=== PATIENT | male | born 1960 | race Caucasian/White ===

== ENCOUNTER → 2022-01-19 | Outpatient (CLI) | payer MEDICARE, MEDICAID ==
[~2022-01-19] MED LIST: AMLO5TAB88 PO; ASPI-1497 PO; GABA-532 PO; HYDR-4135 PO; LOSA50TA41 PO; METH-818 PO; METH10OR PO; METO25TA6 PO; OMEP40CA20 PO; ROSU20TA2 PO; TICA90TA PO; VITA250012 MT
== END | disposition home or self-care (01) ==
LOC: LAB 09:31
PROVIDERS: ATTEND Surgery Vascular Surgery
DX: Z20.822 Contact with and (suspected) exposure to COVID-19 (principal)
CPT/HCPCS: 87426

== ENCOUNTER 2022-01-20 07:38 | Inpatient (IN) | payer MEDICARE, MEDICAID ==
[~2022-01-20] VITALS: Ht 177.8 cm; Wt 135.8 kg
[2022-01-20] VITALS (34 sets, daily range): BP systolic 102–158; BP diastolic 45–80
[2022-01-20] MEDS ORDERED: POLYMYXIN B SULFATE 500000 UNITS/VIAL ONE (08:23)
[2022-01-20] MEDS ORDERED: HEPARIN SODIUM 1,000 UNIT/1ML VIAL IV ONE (08:25)
[2022-01-20] MEDS ORDERED: BACITRACIN 15GM TUBE TOP ONE (08:25)
[2022-01-20] MEDS ORDERED: BUPIVACAINE HCL/PF 0.5% (5MG/ML) 30ML ONE (08:25)
[2022-01-20] MEDS ORDERED: THROMBIN (BOVINE) 5000 UNITS/VIAL TOP ONE (08:26)
[2022-01-20] MEDS ORDERED: LIDOCAINE HCL 1% 20ML VIAL (Pyxis) INJ ONE (08:26)
[2022-01-20] MEDS ORDERED: SODIUM CHLORIDE 0.9% 1,000 ML IV ONE (08:45)
[2022-01-20 08:47] LABS: BASOPHILS % 0.8 % (0.0-2.0); EOSINOPHILS % 0.8 % (0.0-5.0); HEMATOCRIT. 42.5 % (42.0-52.0); HEMOGLOBIN. 14.4 g/dL (14.0-18.0); MEAN CORPUSCULAR HEMOGLOBIN 29.6 pg (28.0-32.0); MEAN CORPUSCULAR VOLUME 87.4 fL (80.0-94.0); MEAN PLATELET VOLUME 8.2 fl (7.4-10.4); NEUTROPHILS % 65.4 % (40.0-76.0); PLATELET 267 x1000/uL (130-400); RED BLOOD CELL COUNT 4.86 mill/uL (4.7-6.1); RED CELL DISTRIBUTION WIDTH 14.9 % (11.6-14.6)
[2022-01-20 08:51] LABS: CHLORIDE 108 mEq/L (98-107)
[2022-01-20 08:56] LABS: INR 0.9; PARTIAL THROMBOPLASTIN TIME 27.3 sec (23.4-31.0); PROTHROMBIN TIME 10.2 sec (9.6-11.0)
[2022-01-20] MEDS ORDERED: NICARDIPINE 40MG/200ML PREMIX 200 ML IV PRN (09:15)
[2022-01-20] MEDS ORDERED: MORPHINE SULFATE 4 MG/ML CPJ (NOT FOR IM USE) IV PRN (09:15)
[2022-01-20] MEDS ORDERED: NITROGLYCERIN 50MG PREMIX 250 ML IV ONE (09:20)
[2022-01-20] MEDS ORDERED: NALOXONE HCL 0.4MG/ML VIAL IV PRN (09:45)
[2022-01-20] MEDS ORDERED: CEFAZOLIN SODIUM 1000MG/VIAL ONE (10:23)
[2022-01-20] MEDS ORDERED: ROSU20TA2 PO (10:38)
[2022-01-20] MEDS ORDERED: HYDR-4135 PO (10:38)
[2022-01-20] MEDS ORDERED: METH10OR PO (10:38)
[2022-01-20] MEDS ORDERED: AMLO5TAB88 PO (10:38)
[2022-01-20] MEDS ORDERED: VITA250012 MT (10:38)
[2022-01-20] MEDS ORDERED: METH-818 PO (10:38)
[2022-01-20] MEDS ORDERED: GABA-532 PO (10:38)
[2022-01-20] MEDS ORDERED: METO25TA6 PO (10:38)
[2022-01-20] MEDS ORDERED: LOSA50TA41 PO (10:38)
[2022-01-20] MEDS ORDERED: OMEP40CA20 PO (10:38)
[2022-01-20] MEDS ORDERED: TICA90TA PO (10:38)
[2022-01-20] MEDS ORDERED: ASPI-1497 PO (10:38)
[2022-01-20] MEDS: NICARDIPINE 50 MG in SODIUM CHLORIDE 0.9% 250 ML IV PRN ×2 (11:00→20:46)
[2022-01-20] MEDS ORDERED: METHADONE HCL 10MG TABLET PO SCH (14:00)
[2022-01-20] MEDS ORDERED: INFLUENZA VACCINE 05/PF 0.5 ML SYRINGE IM ONE (15:00)
[2022-01-20] MEDS ORDERED: PNEUMOCOCCAL 23-VAL P-SAC VAC 0.5 ML IM ONE (15:00)
[2022-01-20] MEDS ORDERED: NITROGLYCERIN 0.4MG TABLET SL SL PRN (15:45)
[2022-01-20] MEDS ORDERED: MAGNESIUM/ALUMINUM HYDROXIDE/SIMETHICONE 30ML UDC PO PRN (15:45)
[2022-01-20] MEDS ORDERED: ZOLPIDEM TARTRATE 5MG TABLET PO PRN (15:45)
[2022-01-20] MEDS ORDERED: ONDANSETRON HCL 4MG/2ML INJ IV PRN (15:45)
[2022-01-20] MEDS ORDERED: ACETAMINOPHEN 325MG TABLET PO PRN ×2 (15:45)
[2022-01-20] MEDS ORDERED: DOCUSATE SODIUM 100MG CAPSULE PO PRN (15:45)
[2022-01-20] MEDS ORDERED: GUAIFENESIN 200MG/10ML SUGAR FREE UDC PO PRN (15:45)
[2022-01-20] MEDS ORDERED: CLONIDINE 0.1MG TABLET PO PRN (15:45)
[2022-01-20] MEDS ORDERED: IPRATROPIUM/ALBUTEROL 0.5-3(2.5)MG/3ML NEB NEB PRN (15:45)
[2022-01-20] MEDS: METHADONE HCL 10MG TABLET PO SCH (20:38)
[2022-01-20] MEDS: LORAZEPAM 2MG/ML CPJ IV PRN (22:48)
[2022-01-21] VITALS (64 sets, daily range): BP systolic 86–185; BP diastolic 36–133
[2022-01-21] MEDS: NICARDIPINE 50 MG in SODIUM CHLORIDE 0.9% 250 ML IV PRN (01:36)
[2022-01-21 05:40] LABS: BASOPHILS % 0.4 % (0.0-2.0); EOSINOPHILS % 0.1 % (0.0-5.0); HEMATOCRIT. 38.9 % (42.0-52.0); HEMOGLOBIN. 13.1 g/dL (14.0-18.0); LYMPHOCYTES % 14.7 % (20.0-50.0); MEAN CORPUSCULAR HEMOGLOBIN 29.9 pg (28.0-32.0); MEAN CORPUSCULAR VOLUME 88.7 fL (80.0-94.0); MONOCYTES % 7.6 % (2.0-8.0); NEUTROPHILS % 77.2 % (40.0-76.0); PLATELET 279 x1000/uL (130-400); RED BLOOD CELL COUNT 4.39 mill/uL (4.7-6.1)
[2022-01-21 06:06] LABS: CHLORIDE 104 mEq/L (98-107)
[2022-01-21 06:15] LABS: PHOSPHORUS 5.2 mg/dL (2.5-4.9)
[2022-01-21] MEDS: PANTOPRAZOLE SODIUM 40 MG/VIAL IV SCH (08:37)
[2022-01-21] MEDS ORDERED: AMLODIPINE 10MG TABLET PO SCH (09:30)
[2022-01-21] MEDS ORDERED: CLONIDINE 0.1MG TABLET PO PRN (09:30)
[2022-01-21] MEDS: LOSARTAN POTASSIUM 50 MG TABLET PO SCH (10:29)
[2022-01-21] MEDS: METOPROLOL TARTRATE 25MG TABLET PO SCH (10:29)
[2022-01-21] MEDS ORDERED: HYDRALAZINE HCL 50MG TABLET PO SCH (14:00)
[2022-01-21] MEDS: METHADONE HCL 10MG TABLET PO SCH (21:54)
[2022-01-21] MEDS: LORAZEPAM 2MG/ML CPJ IV PRN (21:54)
[2022-01-22] VITALS (18 sets, daily range): BP systolic 97–140; BP diastolic 52–118
[2022-01-22] MEDS: METOPROLOL TARTRATE 25MG TABLET PO SCH (08:58)
[2022-01-22] MEDS: PANTOPRAZOLE SODIUM 40 MG/VIAL IV SCH (08:58)
[2022-01-22] MEDS: LOSARTAN POTASSIUM 50 MG TABLET PO SCH (08:58)
== END 2022-01-22 12:40 | disposition home or self-care (01) | DRG 38 ==
LOC: OR 07:38 → CVICU 07:39 → EDUNIT# 12:00
PROVIDERS: ADMIT Surgery Vascular Surgery; ATTEND Surgery Vascular Surgery
PROC: 03CL0ZZ Extirpation of Matter from Left Internal Carotid Artery, Open Approach (ICD-10-PCS; principal; 2022-01-20)
DX: I65.22 Occlusion and stenosis of left carotid artery (principal); Z68.41 Body mass index [BMI] 40.0-44.9, adult; E78.00 Pure hypercholesterolemia, unspecified; I10 Essential (primary) hypertension; E78.5 Hyperlipidemia, unspecified; G89.4 Chronic pain syndrome; I25.10 Atherosclerotic heart disease of native coronary artery without angina pectoris; R73.03 Prediabetes; E66.01 Morbid (severe) obesity due to excess calories; G62.9 Polyneuropathy, unspecified; Z80.9 Family history of malignant neoplasm, unspecified; Z82.49 Family history of ischemic heart disease and other diseases of the circulatory system; Z86.73 Personal history of transient ischemic attack (TIA), and cerebral infarction without residual deficits; Z87.891 Personal history of nicotine dependence; Z95.1 Presence of aortocoronary bypass graft
CPT/HCPCS: 36415; 80048; 80053; 83036; 83735; 84100; 85025; 88304; 88311; 90686; 90732; 93005; C9113; J0690; J1644; J2060; J2270; J3490; J7030; J7050